=== PATIENT | female | born 1985 | race Caucasian/White ===

== ENCOUNTER → 2017-10-19 15:09 | Outpatient (REF) | payer BC, SELFPAY ==
--- NOTE | 2017-10-19 14:30 | PAPFT_PTH ---
PATIENT: Loretta Hu LOC: [facility] U#:[id number] AGE/SX: 39/F ROOM: RE10/19/[address]: Yu Rachel NP : 1985 BED: DIS: SPEC #: [id number] RECD: 10/19/17 18:04 STATUS: DEYSI ALMODOVAR #: [id number] GALINA: 10/19/17 14:[address]: Yu Rachel NP DEPT: [facility] Cytology RECD BY: Julianne Mckeon ENTERED: 10/19/17 18:04 SP TYPE: PAPFT OTHR DR: Renee Montiel Tissues: 1 - CX/ENDOCX FOR PAP SMEARS Procedures: PAP THIN PREP/UVM Screening HPV DNA PROBE Comments: [id number]
== END ==
LOC: LBN 15:09
PROVIDERS: PCP Internal Medicine; Visit Provider Nurse Practitioner Women's Health
DX: Z12.4 Encounter for screening for malignant neoplasm of cervix (principal); Z11.51 Encounter for screening for human papillomavirus (HPV)
CPT/HCPCS: 88142; 87624

== ENCOUNTER 2020-04-14 03:14 | Outpatient (CLI) | payer BC, SELFPAY ==
[2020-04-14 10:52] LABS: BUN 13 mg/dL (7-18); CREATININE 0.9 mg/dL (0.55-1.02); Calcium 10.3 mg/dL (8.5-10.1); Calculated LDL 222 mg/dL (<100); Chloride 105 mmol/L (98-107); Cholesterol 304 mg/dL (<200); Glucose 92 mg/dL (74-106); HDL Cholesterol 66 mg/dL (40-60); Potassium 4.2 mmol/L (3.5-5.1); Sodium 140 mmol/L (136-145); Triglyceride 81 mg/dL (<150)
[2020-04-17 23:19] LABS: 25-Hydroxy D Total 58 ng/mL; 25-Hydroxy D2 <4.0 ng/mL; 25-Hydroxy D3 58 ng/mL
== END 2020-04-14 03:15 | disposition home or self-care (01) ==
LOC: LBO 03:14
PROVIDERS: PCP Internal Medicine; Visit Provider Internal Medicine
DX: Z00.00 Encounter for general adult medical examination without abnormal findings (principal); Z13.220 Encounter for screening for lipoid disorders; Z13.228 Encounter for screening for other metabolic disorders; Z13.21 Encounter for screening for nutritional disorder
CPT/HCPCS: 36415; 80048; 80061; 82306

== ENCOUNTER 2023-05-10 14:51 | Outpatient (REF) | payer BC, SELFPAY ==
[2023-05-10 15:28] LABS: Abs Immature Grans 0.03 10^3/uL (0.0-0.06); Absolute Basophil Count 0.05 10^3/uL (0.0-0.2); Basophils % 0.4; Eosinophils % 0.7; HCT 42.7 % (36.0-46.0); HGB 14.1 g/dL (11.2-15.7); Immature Grans % 0.2; Lymphocytes % 25.5; MCH 28.7 pg (27.0-33.0); MCV 87 fL (80-95); MPV 9.7 fL (8.0-11.0); Monocytes % 3.5; Neutrophils % 69.7; Platelet Count 296 10^3/uL (130-400); RBC 4.92 10^6/uL (3.93-5.22); RDW 12.1 % (11.7-14.6); RDW-SD 38.9 fL; WBC 12.14 10^3/uL (4.4-10.8)
[2023-05-10 15:31] LABS: Absolute Eosinophil Count 0.08 10^3/uL (0.0-0.7); Absolute Monocyte Count 0.42 10^3/uL (0.1-0.8); Absolute Neutrophil Count 8.46 10^3/uL (1.2-6.7)
[2023-05-10 15:46] LABS: ALT 33 U/L (14-59); AST 19 U/L (15-37); Alkaline Phosphatase 98 U/L (46-116); Anion Gap 12.5 mmol/L (3-11); BUN 17 mg/dL (7-18); Bilirubin, Total 0.3 mg/dL (0.2-1.0); CO2 23.5 mmol/L (21.0-32.0); CREATININE 0.9 mg/dL (0.55-1.02); Calcium 10.5 mg/dL (8.5-10.1); Chloride 105 mmol/L (98-107); Estimated GFR 84.44 (mL/min/1.73m2); Glucose 86 mg/dL (74-106); Potassium 4.3 mmol/L (3.5-5.1); Sodium 141 mmol/L (136-145); Total Protein 8.1 g/dL (6.4-8.2)
[2023-05-10 16:20] LABS: Lipase 49 U/L (16-77)
== END 2023-05-10 14:52 | disposition home or self-care (01) ==
LOC: LBN 14:51
PROVIDERS: PCP Internal Medicine; Visit Provider Physician Assistant Medical
DX: R10.11 Right upper quadrant pain (principal)
CPT/HCPCS: 80053; 80061; 83690; 85025

== ENCOUNTER 2024-08-01 18:58 | Observation (INO) | payer BC, SELFPAY ==
[2024-08-01 19:02] VITALS: BP 141/99; PULSE 88; RESP 20; TEMP 37; O2SAT 98
--- NOTE | 2024-08-01 19:24 | ED.GENADUL_ITS ---
Discharge Plan Disposition Patient Disposition: Admit to [facility] Condition: Stable Discharge Details Clinical Impression: Acute appendicitis, uncomplicated Primary Care Provider: Renee Montiel ED Provider: Rocío Hanna Home Meds and New Rx's Prescriptions: No Action norgestimate-ethinyl estradiol [Sprintec (28)] 0.25-35 mg-mcg tablet 1 tab PO DAILY Qty: 84 1RF Formula 1 EACH tablet 1 ea PO DAILY Qty: 120 One-Per-Day [place]-3 1 EACH capsule,delayed release(DR/EC) 1 ea PO DAILY HPI General Mode of arrival: ambulatory . Date/Time Provider Initiated Documentation: 08/01/24 19:09 . Limitations to Documentation: no limitations . Information obtained by: patient and old records reviewed . HPI Narrative: This is a 38-year-old female patient with a history of 2 C-sections, presenting for evaluation of right lower quadrant abdominal pain. The patient was in her normal state of health until approximately 1-1/2 hours ago, when she developed a sharp pain in her right lower quadrant that did not improve. She states that she felt much worse when she pressed on that area, states she has not noted any fevers, vomiting or nausea but she does feel like she has anorexia. Her last bowel movement was today and was normal for her, she has not had any dysuria or hematuria. The patient uses oral control for contraception, last menstrual period 2 weeks ago. Other than 2 C-sections she has no abdominal surgical history. Related Data Home Medications ?Medication ?Instructions ?Recorded ?Confirmed prenat.vits,natalie,xvs-gknk-dlfjd 1 ea PO DAILY #120 tabs 11/07/14 08/01/24 ( Formula tablet) omega-3 fatty acids-fish oil 684 1 ea PO DAILY 10/19/17 08/01/24 mg-1,200 mg capsule,delayed release (One-Per-Day [place]-3) norgestimate 0.25 mg-ethinyl 1 tab PO DAILY #84 tabs 12/27/18 08/01/24 estradiol 0.035 mg tablet (Sprintec (28)) Previous Rx's ?Medication ?Instructions ?Recorded norgestimate 0.25 mg-ethinyl 1 tab PO DAILY #84 tabs 12/27/18 estradiol 0.035 mg tablet (Sprintec (28)) Allergies Allergy/AdvReac Type Severity Reaction Status Date / Time No Known Allergies Allergy Verified 08/01/24 19:01 General Stated Complaint: Abd Prob VLAD: 3 Exam Narrative Exam Narrative: Gen: Awake and alert, in no apparent distress HEENT: Non-icteric sclera Neck: Supple Lungs: No apparent respiratory distress, normal respiratory effort. CV: Appears well perfused Abdomen: Non-distended, soft, tender to palpation in the right lower quadrant with some guarding. She has a positive Rovsing sign but no rebound tenderness or rigidity. MSK: Moves 4 extremities without apparent limitation in ROM Skin: Visualized skin without rashes, cyanosis. Neuro: Normal Gait, no obvious focal deficits or facial asymmetry. Speaks in full, clear sentences. Psych: Appropriate for situation. Course Vital Signs Vital signs: Vital Signs Temperature 37.0 C 08/01/24 19:02 Pulse 88 08/01/24 19:02 Respiratory Rate 20 08/01/24 19:02 Blood Pressure 141/99 H 08/01/24 19:02 Pulse Oximetry 98 08/01/24 19:02 Temperature 37.0 C 08/01/24 19:02 Temperature Source Oral 08/01/24 19:02 Pulse 88 08/01/24 19:02 Respiratory Rate 20 08/01/24 19:02 Blood Pressure 141/99 H 08/01/24 19:02 Blood Pressure Position Sitting 08/01/24 19:02 Pulse Oximetry 98 08/01/24 19:02 Oxygen Delivery Method Room Air 08/01/24 19:02 Oxygen Flow Rate 0 08/01/24 19:02 Pain Level 6 08/01/24 19:02 Medical Decision Making This is a 38-year-old female patient presenting for evaluation of right lower quadrant abdominal pain. Differential includes but is not limited to appendicitis, ectopic , ovarian cyst, ovarian torsion. No history concerning for bowel obstruction, exam less consistent with diverticulitis, pancreatitis, hepatitis, cholecystitis. We will obtain laboratory studies to include CBC, CMP, magnesium, lipase, urinalysis and test. Will obtain a CT abdomen and pelvis with contrast and provide the patient with Tylenol for initial symptomatic management. Laboratory studies notable for a slight leukocytosis to 13.5, no anemia or thrombocytopenia. Chemistry panel with a mildly low potassium to 3.3, which was repleted orally. No kidney dysfunction or evidence of liver disease, lipase is low. I reviewed the patient's CT, which shows early uncomplicated appendicitis. I reached out to general surgery who will evaluate the patient, a dose of Zosyn was provided and the patient was made NPO at midnight. She was admitted to the surgical team with a plan to go to the OR in the morning. Remained hemodynamically appropriate while under my care, transferred to the floor without incident. Medical Records Medical records reviewed: Yes I reviewed the patient's medical records. Lab Data Lab results reviewed: Yes I reviewed the patient's lab results. Quality:SDOH Health Related Social Needs: No Data to Display PFSH All Active Problems (Updated 04/09/18 @ 15:38 by Yola Montoya NP) Acute appendicitis, uncomplicated (Acute) Contraception (Acute) History of anorexia nervosa (Acute) As teen. When figure skating, body image related. Bipolar disorder (Chronic) History. No medications Previous section (Chronic 07/14/16) Surgical History (Updated 04/09/18 @ 15:38 by Yola Montoya NP) section (09/27/14) C/S #2 03/08/17 [facility]. F. Ana. KK Family History Mother Depression Hypothyroidism Father GERD (gastroesophageal reflux disease) Sister Depression Sister No problems noted. Brother No problems noted. Daughter Age: 9 No problems noted. Social History Smoking/Tobacco Use Status: Former Tobacco Use Quit Date: 08/11/21 Smoking risk assessment performed?: Yes Alcohol Intake: current Alcohol Intake frequency: a few times a month Alcohol type: hard liquor Drug use: Occasionally Substance use type: marijuana Housing: house Do you feel safe at home: No Do you feel safe in your relationship?: No Female Reproductive History Menstrual control method: progesterone injection History History 3 Para 2 Hx # Term Pregnancies Multiple births Hx # Pregnancies Ectopic pregnancies AB induced Hx Number of Living Children AB spontaneous 1
[2024-08-01 19:30] LABS: Abs Immature Grans 0.03 10^3/uL (0.0-0.06); Absolute Basophil Count 0.04 10^3/uL (0.0-0.2); Absolute Lymphocyte Count 3.45 10^3/uL (1.2-3.4); Absolute Neutrophil Count 9.29 10^3/uL (1.2-6.7); Basophils % 0.3 %; Eosinophils % 1.3 %; HCT 41.1 % (36.0-46.0); HGB 13.6 g/dL (11.2-15.7); Immature Grans % 0.2 %; Lymphocytes % 25.4 %; MCH 28.3 pg (27.0-33.0); MCHC 33.1 % (32.0-36.0); MCV 86 fL (80-95); MPV 8.8 fL (8.0-11.0); Monocytes % 4.4 %; Neutrophils % 68.4 %; Platelet Count 288 10^3/uL (130-400); RDW 12.3 % (11.7-14.6); RDW-SD 38.3 fL; WBC 13.58 10^3/uL (4.4-10.8)
[2024-08-01 19:33] LABS: Absolute Eosinophil Count 0.18 10^3/uL (0.0-0.7)
[2024-08-01 19:47] LABS: ALT 24 U/L (14-59); AST 19 U/L (15-37); Albumin 3.6 g/dL (3.4-5.0); Alkaline Phosphatase 90 U/L (46-116); Anion Gap 10.4 mmol/L (3-11); BUN 15 mg/dL (7-18); Bilirubin, Total 0.3 mg/dL (0.2-1.0); CO2 23.6 mmol/L (21.0-32.0); Calcium 9.2 mg/dL (8.5-10.1); Chloride 105 mmol/L (98-107); Estimated GFR 73.95 (mL/min/1.73m2); Glucose 105 mg/dL (74-106); Lipase 38 U/L (<78); Magnesium 1.9 mg/dL (1.8-2.4); Potassium 3.3 mmol/L (3.5-5.1); Sodium 139 mmol/L (136-145); Total Protein 7.9 g/dL (6.4-8.2)
[2024-08-01] MEDS: Omnipaque 350 MG/ML 100 ML BTL IJ (19:47)
[2024-08-01] MEDS: Normal Saline - Diluent 50 ML VIAL IJ (19:47)
--- NOTE | 2024-08-01 19:48 | DI.CT_ITS ---
Exam(s) CT ABDOMEN PELVIS W EXAM: CT ABDOMEN PELVIS W CLINICAL HISTORY: RLQ pain, eval appy. TECHNIQUE: Imaging Protocol: Axial computed tomography images with coronal and sagittal reformatted images were created and reviewed CONTRAST MATERIAL: Intravenous: Omnipaque 350 Contrast volume:75 ml Oral: no COMPARISON: CT ABD PELVIS WITH CONTRAST from 03/07/2009 FINDINGS: ABDOMEN and PELVIS: Lung Bases: No acute findings. Liver: Normal density. No suspicious mass. Gallbladder and biliary tract: No radiodense calculus. No wall thickening or pericholecystic fluid. No biliary dilation. Pancreas: Normal density. No abnormal calcifications or inflammatory process. No evidence of mass. Spleen: Normal. Kidneys: Normal size, contour and axis. No radiodense stones. No obstructive uropathy. No suspicious masses seen. Adrenal glands: No masses seen. Vasculature: Abdominal aorta non-dilated. Soft tissues: Unremarkable. Bladder: No gross wall thickening. No calculi.No focal mass. Bowel: No obstruction. No bowel wall thickening. The appendix is retrocecal and is dilated to 8 mi llimeters. There is some mild stranding in the surrounding fat. No evidence of abscess or perforati on. Peritoneal cavity: No ascites. No focal collection. No free air. Bones: Unremarkable for age. Reproductive organs: Unremarkable. Lymph nodes: No pathologically enlarged lymph nodes. IMPRESSION:: Acute appendicitis. No perforation or abscess. He RADIATION DOSE DELIVERED: 530.05mGy.cm Total DLP DATA REPOSITORY: All CT scans at this facility are submitted to the National Radiology Data Registry (NRDR) Dose Index Registry (DIR) with the [employer] (ACR). RADIATION OPTIMIZATION: All CT scans at this facility use at least one of these dose optimization te chniques: automated exposure control; mA and/or kV adjustment per patient size (includes targeted exa ms where dose is matched to clinical indication); or iterative reconstruction.
[2024-08-01] MEDS: ACETAMINOPHEN 1,000 MG/100 ML BTL 1000 MG (20:04)
--- NOTE | 2024-08-01 20:13 | DI.VRAD_ITS ---
Addendum created by Cristela Solis MD on 08/01/2024 8:15:24 PM EDT: I discussed case findings with STRATEGIC ACCOUNT EXECUTIVE Merlin Goldberg 08/01/2024 8:14 PM EDT. Initial report created on 08/01/2024 8:13:17 PM EDT: PROCEDURE INFORMATION: Exam: CT Abdomen And Pelvis With Contrast Exam date and time: 08/01/2024 7:38 PM Age: 38 years old Clinical indication: Abdominal pain; Localized; Right lower quadrant (rlq); Rlq pain, eval appy TECHNIQUE: Imaging protocol: Computed tomography of the abdomen and pelvis with contrast. Radiation optimization: All CT scans at this facility use at least one of these dose optimization techniques: automated exposure control; mA and/or kV adjustment per patient size (includes targeted exams where dose is matched to clinical indication); or iterative reconstruction. Contrast material: [id number]; Contrast volume: 75 ml; Contrast route: INTRAVENOUS (IV); COMPARISON: US ABDOMEN LIMITED 05/10/2023 11:58 AM FINDINGS: Liver: Normal. No mass. Gallbladder and biliary ducts: Normal. No calcified stones. No ductal dilation. Pancreas: Normal. No ductal dilation. Spleen: Normal. No splenomegaly. Adrenal glands: Normal. No mass. Kidneys and ureters: Normal. No hydronephrosis. Stomach and bowel: Unremarkable. No obstruction. No mucosal thickening. Appendix: The appendix is abnormally thickened. It measures 8 mm in diameter. It is retrocecal in location. There is some mild adjacent inflammatory change. No extraluminal fluid or air. Intraperitoneal space: See Appendix finding. Vasculature: Unremarkable. No abdominal aortic aneurysm. Lymph nodes: Unremarkable. No enlarged lymph nodes. Urinary bladder: Unremarkable as visualized. Reproductive: Unremarkable as visualized. Bones/joints: Unremarkable. No acute fracture. Soft tissues: Unremarkable. IMPRESSION: Early, acute appendicitis, uncomplicated. Dictated and Authenticated by: Cristela Solis MD. Orderin [facility] Alford MD
--- NOTE | 2024-08-01 20:45 | HPE_ITS ---
Date of service: 08/01/24 Time of Service: 20:45 Assessment and Plan Assessment and plan (1) Acute appendicitis, uncomplicated: Status: Acute Assessment and plan: Certainly, the history, and physical exam are consistent with acute appendicitis, and the inflammation seen on the CT scan is also very convincing of diagnosis. I explained to Loretta the role of appendectomy and treatment of appendicitis. She is already been started on broad-spectrum antibiotics, and we will make arrangements to proceed with appendectomy in the morning. History of Present Illness History of Present Illness Chief Complaint: Abdominal pain Narrative: Loretta is 38 years old. Sometime mid afternoon she began experiencing sharp mid abdominal pain that eventually radiated to the right lower quadrant. This was associated with a little bit of loss of appetite. First, she thought it was just some gas, but eventually as the pain settled into the right lower quadrant and remained consistent, she became concerned for appendicitis. She came to the ER, was found to have a leukocytosis around 14,000. She underwent a CT scan that confirmed the diagnosis of acute appendicitis. With surgical history is most significant for hysterectomy x 2. Review of Systems Constitutional Constitutional: Denies body ache(s), Denies fever(s) and Reports poor appetite Eyes Eyes: Reports system reviewed and no additional complaints, except as documented ENT Ears, Nose, Mouth, and Throat: Reports system reviewed and no additional complaints, except as documented Cardiovascular Cardiovascular: Denies chest pain and Denies dyspnea Respiratory Respiratory: Denies chest congestion, Denies cough and Denies dyspnea Gastrointestinal Gastrointestinal: Reports abdominal pain, Denies change in stool character, Reports nausea and Denies vomiting Genitourinary Genitourinary: Reports system reviewed and no additional complaints, except as documented Hematologic/Lymphatic Hematologic/Lymphatic: Denies easy bleeding and Denies easy bruising PFSH All Active Problems (Updated 04/09/18 @ 15:38 by Yola Montoya NP) Acute appendicitis, uncomplicated (Acute) Contraception (Acute) History of anorexia nervosa (Acute) As teen. When figure skating, body image related. Bipolar disorder (Chronic) History. No medications Previous section (Chronic 07/14/16) Surgical History (Updated 04/09/18 @ 15:38 by Yola Montoya NP) section (09/27/14) C/S #2 03/08/17 [facility]. Lisandro Pavon BRITNEY Family History Mother Depression Hypothyroidism Father GERD (gastroesophageal reflux disease) Sister Depression Sister No problems noted. Brother No problems noted. Daughter Age: 9 No problems noted. Social History Smoking/Tobacco Use Status: Former Tobacco Use Quit Date: 08/11/21 Smoking risk assessment performed?: Yes Alcohol Intake: current Alcohol Intake frequency: a few times a month Alcohol type: hard liquor Drug use: Occasionally Substance use type: marijuana Housing: house Do you feel safe at home: No Do you feel safe in your relationship?: No Female Reproductive History Menstrual control method: progesterone injection History History 2 3 Para 2 Hx # Term Pregnancies Multiple births Hx # Pregnancies Ectopic pregnancies AB induced Hx Number of Living Children AB spontaneous 1 Meds Allergies and Home Medications Allergies Allergy/AdvReac Type Severity Reaction Status Date / Time No Known Allergies Allergy Verified 08/01/24 19:01 Home Medications ?Medication ?Instructions ?Recorded ?Confirmed ?Type prenat.vits,natalie,svl-ghxw-zaxsq 1 ea PO DAILY #120 tabs 11/07/14 08/01/24 History ( Formula tablet) omega-3 fatty acids-fish oil 684 1 ea PO DAILY 10/19/17 08/01/24 History mg-1,200 mg capsule,delayed release (One-Per-Day [place]-3) norgestimate 0.25 mg-ethinyl 1 tab PO DAILY #84 tabs 12/27/18 08/01/24 Rx estradiol 0.035 mg tablet (Sprintec (28)) Exam Const General: cooperative, healthy appearing and comfortable Orientation: alert, awake and oriented x3 HENMT Head: normal to inspection Eyes General: appearance normal, both eyes and all related structures Neck Neck: normal visual inspection, full ROM and no lymphadenopathy Resp Effort & Inspection: normal respiratory effort and no cough Auscultation: clear to auscultation bilaterally Cardio Rate: regular rate Rhythm: regular rhythm Heart Sounds: S1 normal and S2 normal GI Inspection: normal to inspection and non-distended Palpation: soft and tender (Right lower quadrant) Results Imaging Abdomen CT scan report/results: report reviewed and image reviewed CT scan - pelvis: report reviewed and image reviewed Labs 08/01/24 18:30 08/01/24 18:30 Labs: Laboratory Results - last 24 hr 08/01/24 18:30 WBC 13.58 H RBC 4.80 Hgb 13.6 Hct 41.1 MCV 86 MCH 28.3 MCHC 33.1 RDW 12.3 Plt Count 288 MPV 8.8 Immature Gran % 0.2 Neutrophils % 68.4 Lymphocytes % 25.4 Monocytes % 4.4 Eosinophils % 1.3 Basophils % 0.3 Nucleated RBC % 0.0 Absolute Neutrophils 9.29 H Absolute Lymphocytes 3.45 H Absolute Monocytes 0.60 Absolute Eosinophils 0.18 Absolute Basophils 0.04 Sodium 139 Potassium 3.3 L Chloride 105 Carbon Dioxide 23.6 Anion Gap 10.4 BUN 15 Creatinine 1.0 Est GFR (CKD-EPI 2020) 73.95 Glucose 105 Calcium 9.2 Magnesium 1.9 Total Bilirubin 0.3 AST 19 ALT 24 Alkaline Phosphatase 90 Total Protein 7.9 Albumin 3.6 Lipase 38 Last Vital Signs Temp 98.6 F 08/01/24 19:02 Pulse 88 08/01/24 19:02 Resp 20 08/01/24 19:02 BP 141/99 H 08/01/24 19:02 Pulse Ox 98 08/01/24 19:02 Time Spent Time spent with Patient: <40 minutes Time was spent: preparing to see the patient(eg.review tests), referring, communicating with other health care management specialist, indepentently interpreting results, counseling the patient and care coordination
[2024-08-01 21:25] VITALS: BP 114/75; PULSE 81; RESP 16; O2SAT 96
[2024-08-01] MEDS: PIPERACILLIN/TAZO 3.375 GM in Normal Saline 50 ML IVPB (21:31)
[2024-08-01] MEDS: Potassium Chloride 20 MEQ TABCR PO (21:33)
[2024-08-01 21:43] LABS: Bilirubin Negative (Negative); Blood Trace-intact (Negative); Clarity Clear (Clear); Glucose Negative (Negative); Ketones Negative (Negative); Leukocyte Esterase Negative (Negative); Nitrite Negative (Negative); Specific Gravity <= 1.005 (1.005-1.025); Urobilinogen 0.2 mg/dL (Up to 0.2)
--- NOTE | 2024-08-01 21:47 | W.PC.ACHO ---
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 Pt reports tender on palpation, 08/20. No fevers, no nausea or vomiting. LBM was this morning, normal. Has not taken medication for pain. (Last Updated 04/09/18 @ 15:38 by Yola Montoya NP) section (09/27/14) Most Recent Vital Signs Temperature 37.0 C 08/01/24 19:02 Temperature Source Oral 08/01/24 19:02 Pulse 81 08/01/24 21: Respiratory Rate 16 08/01/24: Blood Pressure 114/75 08/01/24: Blood Pressure Mean 88 08/01/24 21: Blood Pressure Position Sitting 08/01/24 19:02 Pulse Oximetry 96 08/01/24 21:25 Oxygen Delivery Method Room Air 08/01/24 19:02 Oxygen Flow Rate 0 08/01/24 19:02 Pain Level 4 08/01/24 21:25 Allergies No Known Allergies Allergy (Verified 08/01/24 19:01) Active Medications Generic Name Dose Route Start Last Admin Trade Name Chrisq PRN Reason Stop Dose Admin Iohexol 100 ml 08/01/24 20:00 08/01/24 19:47 Omnipaque 350 Mg/Ml 100 Ml Btl IJ 08/31/24 23:59 100 ml DIRECTED CARMENCITA Administration Sodium Chloride 50 ml 08/01/24 20:00 08/01/24 19:47 Normal Saline - Diluent 50 Ml Vial IJ 50 ml .FOR DI USE CARMENCITA Administration IV IV Catheter Type [Right Saline Lock Antecubital] IV Catheter Gauge [Right 20 Antecubital] Diet Orders Category Date Time Status npo [Nothing Per Oral] [DIET] Nutrition 08/02/24 Breakfast Ordered Diagnostics 08/01/24 08/01/24 Range/Units 20:05 18:30 WBC 13.58 H (4.4-10.8) 10^3/uL RBC 4.80 (3.93-5.22) 10^6/uL Hgb 13.6 (11.2-15.7) g/dL Hct 41.1 (36.0-46.0) % MCV 86 (80-95) fL MCH 28.3 (27.0-33.0) pg MCHC 33.1 (32.0-36.0) % RDW 12.3 (11.7-14.6) % Plt Count 288 (130-400) 10^3/uL MPV 8.8 (8.0-11.0) fL Immature Gran % 0.2 % Neutrophils % 68.4 % Lymphocytes % 25.4 % Monocytes % 4.4 % Eosinophils % 1.3 % Basophils % 0.3 % Nucleated RBC % 0.0 (0.0-0.3) % Absolute Neutrophils 9.29 H (1.2-6.7) 10^3/uL Absolute Lymphocytes 3.45 H (1.2-3.4) 10^3/uL Absolute Monocytes 0.60 (0.1-0.8) 10^3/uL Absolute Eosinophils 0.18 (0.0-0.7) 10^3/uL Absolute Basophils 0.04 (0.0-0.2) 10^3/uL Sodium 139 (136-145) mmol/L Potassium 3.3 L (3.5-5.1) mmol/L Chloride 105 (98-107) mmol/L Carbon Dioxide 23.6 (21.0-32.0) mmol/L Anion Gap 10.4 (3-11) mmol/L BUN 15 (7-18) mg/dL Creatinine 1.0 (0.55-1.02) mg/dL Est GFR (CKD-EPI 2020) 73.95 (mL/min/1.73m2) Glucose 105 (74-106) mg/dL Calcium 9.2 (8.5-10.1) mg/dL Magnesium 1.9 (1.8-2.4) mg/dL Total Bilirubin 0.3 (0.2-1.0) mg/dL AST 19 (15-37) U/L ALT 24 (14-59) U/L Alkaline Phosphatase 90 (46-116) U/L Total Protein 7.9 (6.4-8.2) g/dL Albumin 3.6 (3.4-5.0) g/dL Lipase 38 (<78) U/L Urine Color Pending Urine Clarity Pending Urine pH Pending Ur Specific [place] Pending Urine Protein Pending Urine Ketones Pending Urine Blood Pending Urine Nitrite Pending Urine Bilirubin Pending Urine Urobilinogen Pending Ur Leukocyte Esterase Pending Urine Glucose Pending Intake and Output - 24 Hour Total 08/01/24 18:58 thru 08/01/24 21:32 Intake Total 10 Balance 10 Weight 71.668 kg Intake: IV 10 Falls Risk Assessment History of Falls No History 08/01/24 21:24 Fall Total Score 0 08/01/24 21:24 Level of Risk Standard/Low Risk 08/01/24 21:24 Problems (Last Updated 04/09/18 @ 15:37 by Yola Montoya NP) Acute appendicitis, uncomplicated (Acute) v v v v v v v v v Sending and/or Receiving Nurses: Please use comment section below to note any information pertinent to the patient hand-off not included above. Information / Comments: A & O, Up ad ivon, lower abd. pain this afternoon that radiated to the RLQ. Nothing relieved the pain, patient presented to the ER. [facility] to admit and remove appendix in the AM. PO K (20mEq) for replacement K (3.3 serum). 20g R AC. First dose pip/jerry administered in the ER. Report received from: Alma Delia Novak RN
[2024-08-01 21:55] LABS: Epithelial Cells Few HPF (Negative); WBC 0-2 HPF (0-5)
[2024-08-01 21:56] LABS: Bacteria Rare HPF (Negative); C & S Indicated? No; Casts Negative LPF (Negative); Crystals Negative HPF (Negative); Mucus Negative (Negative)
[2024-08-01 21:57] VITALS: BP 148/96; PULSE 78; RESP 20; TEMP 36.2; O2SAT 100
[2024-08-01] MEDS: Lactated Ringers 1,000 ML 75 ML IV (22:01)
[2024-08-01 22:20] VITALS: BP 148/96; PULSE 78; RESP 20; TEMP 36.2; O2SAT 100
[2024-08-01] MEDS: Normal Saline Flush 10 ML SYR IVP (22:22)
[2024-08-01] MEDS: Enoxaparin 40 MG/0.4 ML SYR SC (22:28)
[2024-08-02] VITALS (25 sets, daily range): BP systolic 104–132; BP diastolic 49–98; PULSE 55–78; RESP 13–27; TEMP 35.3–36.8; O2SAT 98–100; BMI 29.4
[2024-08-02] MEDS: PIPERACILLIN/TAZO 3.375 GM in Normal Saline 50 ML IVPB ×2 (03:30→11:45)
[2024-08-02] MEDS: ACETAMINOPHEN 1,000 MG/100 ML BAG 400 MG IVPB ×2 (03:59→11:45)
--- NOTE | 2024-08-02 08:42 | INITIAL_ITS ---
Date of service: 08/02/24 Time of Service: 09:02 Care Management Initial Assmt Initial Assessment Reason for Hospitalization: Acute Appendicitis Functional Status/Living Situation Patient Presentation: Loretta was lying in bed and had just finished reviewing information with anesthesiology, when CM arrived. Loretta presented to the ED yesterday for evaluation of right lower quadrant abdominal pain. After a CT scan, arrangements to proceed with an appendectomy were made. Loretta is living in a single family home, with her . She shares that she is one of 4 children, and has a la rge family who are supportive to her. 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 CM will continue to follow. [place] Residence: [place] Resides with: Spouse Significant Other/Family: Local Natural Supports: Friends/family Employment Status: Employed (Nursing staff at [employer] ) Instrumental Activities of Daily Living (ADLs): Independent Medications Medication Management: No Issues/Barriers identified Advance Directives Advance Directives: Do you have an Advance Directive: N 07/24/12 10:43 AD On File at [facility]: N 07/24/12 10:43 Date Asked 08/01/24 08/01/24 19:56 AD Date Reviewed COLST On File at [facility] COLST Date Scanned Code Status Resuscitation Status Full Code Portal Pt does not currently have a portal and education provided: Yes Insurance Coverage/Financial Issues Insurance: /[facility] Care Team Visit Care Team Role Provider Type Renee Montiel Primary Care Provider NON-[facility] STAFF PHYSICIAN Rocío Hanna MD Emergency Provider [facility] STAFF PHYSICIAN Gianni Zavala MD Admit Provider [facility] STAFF PHYSICIAN Attending Provider Discharge Potential Discharge Needs: PCP F/U Appt and Surgical F/U Appt Anticipated Barriers to Discharge: Medical Status Patient/Family Education Needs: Review discharge instructions, discuss Ask Me Three Transportation: Private vehicle Plan: Anticipate Loretta will be discharged home, once medically ready. She will follow up with her community provider, surgical team, and discharge plan of car e. She will transport via private vehicle by family. CM will continue to follow. Social Determinants of Health Screening Social Determinants of health last assessed in clinic: 08/02/24 Will the Patient Participate in the Screening?: Declined to provide Do you worry about having a steady place to live?: no Problems where you live: no known problems In the past 12 months, have you had to go without electric, gas, oil or water in your home?: no 1. Within the past 12 months, we worried whether our food would run out before we got money to buy more.: Never true 2. Within the past 12 months, the food we bought just didn't last and we didn't have money to get more.: Never true Has lack of transportation kept you from medical appointments or from doing t hings needed for daily living?: no Has anyone in your life made you feel unsafe or unsupported?: no How hard is it for you to pay for the very basics like food, housing, medical care, and heating? Would you say it is:: Not hard at all Do you want help finding or keeping work or a job?: I do not need or want help If for any reason you need help with day-to-day activities such as bathing, preparing meals, shopping, managing finances, etc., do you get the help you need?: I don?t need any help How often do you feel lonely or isolated from those around you?: Never Do you speak a language other than Setsw[place] at home?: No Does the patient want assistance with any of the above?: No PFSH All Active Problems (Updated 04/09/18 @ 15:38 by Yola Montoya NP) Acute appendicitis, uncomplicated (Acute) Contraception (Acute) History of anorexia nervosa (Acute) As teen. When figure skating, body image related. Bipolar disorder (Chronic) History. No medications Previous section (Chronic 07/14/16) Surgical History (Updated 04/09/18 @ 15:38 by Yola Montoya NP) section (09/27/14) C/S #2 03/08/17 [facility]. F. Ana. KK Family History Mother Depression Hypothyroidism Father GERD (gastroesophageal reflux disease) Sister Depression Sister No problems noted. Brother No problems noted. Daughter Age: 9 No problems noted. Social History Smoking/Tobacco Use Status: Former Tobacco Use Quit Date: 08/11/21 Smoking risk assessment performed?: Yes Alcohol Intake: current Alcohol Intake frequency: a few times a month Alcohol type: hard liquor Drug use: Occasionally Substance use type: marijuana Housing: house Do you feel safe at home: No Do you feel safe in your relationship?: No Female Reproductive History Menstrual control method: progesterone injection History History 3 Para 2 Hx # Term Pregnancies Multiple births Hx # Pregnancies Ectopic pregnancies AB induced Hx Number of Living Children AB spontaneous 1 Readmission Within the Past 30 Days Yes or No: No
--- NOTE | 2024-08-02 11:42 | ANES.PREOP_ITS ---
General Info Date of Service Date Performed: 08/02/24 Height: 5 ft 2.5 in Weight: 74.208 kg Body Mass Index (BMI): 29.4 Surgical Procedure: Operation Date: 08/02/24 12:10 Proposed Procedure Side Surgeon p Appendectomy Laparoscopic Gianni Zavala MD Meds Allergies and Home Medications Allergies Allergy/AdvReac Type Severity Reaction Status Date / Time No Known Allergies Allergy Verified 08/01/24 19:01 Home Medication ?Medication ?Instructions ?Recorded prenat.vits,natalie,nfr-bysd-gvohp 1 ea PO DAILY #120 tabs 11/07/14 ( Formula tablet) omega-3 fatty acids-fish oil 684 1 ea PO DAILY 10/19/17 mg-1,200 mg capsule,delayed release (One-Per-Day [place]-3) norgestimate 0.25 mg-ethinyl 1 tab PO DAILY #84 tabs 12/27/18 estradiol 0.035 mg tablet (Sprintec (28)) Current Visit Medications: Current Medications Generic Name Dose Route Start Last Admin Trade Name Chrisq PRN Reason Stop Dose Admin Enoxaparin Sodium 40 mg 08/01/24 22:00 08/01/24 22:28 Enoxaparin 40 Mg/0.4 Ml Syr SC 40 mg Q24H CARMENCITA Administration Hydromorphone HCl 1 mg 08/01/24 21:56 Hydromorphone 2 Mg/Ml Syr IVP Q4H PRN PRN Ringer's Solution 1,000 mls @ 75 mls/hr 08/01/24 21:56 08/02/24 04:00 IV 75 mls/hr INFUSION CARMENCITA Infusion Acetaminophen 1,000 mg in 100 mls @ 400 mls/hr 08/02/24 04:00 08/02/24 04:20 Ofirmev IVPB Infused Q8H CARMENCITA Infusion Piperacillin Sod/Tazobactam 50 mls @ 100 mls/hr 08/02/24 04:00 08/02/24 04:00 Sod 3.375 gm/ Sodium Chloride IVPB Infused Q6H CARMENCITA Infusion IV Miscellaneous Supplies 1 each 08/01/24 21:56 Iv Access IV DIRECTED CARMENCITA Ondansetron HCl 4 mg 08/01/24 21:56 Ondansetron 4 Mg/2 Ml Vial IVP Q4H PRN PRN Sodium Chloride 0 ml 08/01/24 21:56 08/01/24 22:22 Normal Saline Flush 10 Ml Syr IVP 10 ml PRN PRN Administration Sodium Chloride 0 ml 08/02/24 08:30 08/02/24 07:58 Normal Saline Flush 10 Ml Syr IVP Not Given BID CARMENCITA Sodium Chloride 0 ml 08/01/24 21:56 Normal Saline 10 Ml Vial IJ DIRECTED PRN PFSH Active Problems Active Problems: Problem Status Onset Code Acute appendicitis, uncomplicated Acute K35.80 Contraception Acute Z30.9 History of anorexia nervosa Acute Bipolar disorder Chronic Previous section Chronic 07/14/16 Z98.891 Surgical History Surgical History (Updated 04/09/18 @ 15:38 by Yola Montoya NP) section (09/27/14) C/S #2 03/08/17 EVELY[facility]. Lisandro Perez. BRITNEY Tobacco Smoking/Tobacco Use Status: Former Tobacco Use Alcohol Alcohol Intake: current Alcohol intake frequency: a few times a month Alcohol type: hard liquor Substance Use Substance use: Occasionally Substance use type: marijuana Prental History History 2 3 Para 2 Hx # Term Pregnancies Multiple births Hx # Pregnancies Ectopic pregnancies AB induced Hx Number of Living Children AB spontaneous 1 Vital Signs and Lab Results Vital Signs Most Recent Vital Signs in EMR: Most Recent Vital Signs Temp Pulse Resp BP Pulse Ox 35.8 C L 65 16 114/69 100 08/02/24 08:05 08/02/24 08:05 08/02/24 08:05 08/02/24 08:05 08/02/24 08:05 Point of Care Results Point of Care Results: POC- Test(urine) Negative 08/01/24 22:48 Lab Results 08/01/24 18:30 08/01/24 18:30 Blood Type / Crossmatch: 2 No Data to Display Complete Blood Count: 2 White Blood Count 13.58 10^3/uL (4.4-10.8) H 08/01/24 18:30 Red Blood Count 4.80 10^6/uL (3.93-5.22) 08/01/24 18:30 Hemoglobin 13.6 g/dL (11.2-15.7) 08/01/24 18:30 Hematocrit 41.1 % (36.0-46.0) 08/01/24 18:30 Platelet Count 288 10^3/uL (130-400) 08/01/24 18:30 Complete Metabolic Panel: 2 Sodium 139 mmol/L (136-145) 08/01/24 18:30 Potassium 3.3 mmol/L (3.5-5.1) L 08/01/24 18:30 Chloride 105 mmol/L (98-107) 08/01/24 18:30 Carbon Dioxide 23.6 mmol/L (21.0-32.0) 08/01/24 18:30 BUN 15 mg/dL (7-18) 08/01/24 18:30 Creatinine 1.0 mg/dL (0.55-1.02) 08/01/24 18:30 Est GFR (CKD-EPI 2020) 73.95 (mL/min/1.73m2) 08/01/24 18:30 Magnesium 1.9 mg/dL (1.8-2.4) 08/01/24 18:30 Calcium 9.2 mg/dL (8.5-10.1) 08/01/24 18:30 Albumin 3.6 g/dL (3.4-5.0) 08/01/24 18:30 Glucose 105 mg/dL (74-106) 08/01/24 18:30 Liver Function Panel: 2 Alanine Aminotransferase (ALT/SGPT) 24 U/L (14-59) 08/01/24 18: 30 Aspartate Amino Transf (AST/SGOT) 19 U/L (15-37) 08/01/24 18:30 Coagulation Panel: 2 No Data to Display Cardiac Panel: 2 No Data to Display Arterial Blood Gas: 2 No Data to Display Venous Blood Gas: 2 No Data to Display Pancreas Panel: 2 Lipase 38 U/L (<78) 08/01/24 18:30 Thyroid Panel: 2 No Data to Display Infectious Disease: 2 No Data to Display Blood Cultures: 2 No Data to Display Toxicology Panel: 2 No Data to Display Panel: 2 No Data to Display Anesthesia Assessment and Plan Anesthesia History Personal History: No History of Anesthesia Complications Family History: No Family History of Anesthesia Complications Exercise Tolerance Exercise Tolerance: Metabolic Equivalents>4 Pertinent Negatives Pertinent Negatives: No Symptoms of GERD, No Major Cardiovascular Symptoms or Complaints and No Major Pulmonary Symptoms or Complaints Cardiac & Pulmonary Exam Cardiac Exam: Normal S1/S2 Heart Sounds Pulmonary Exam: Clear Bilateral Breath Sounds Implantable Cardiac Device Does patient have a Pacemaker or an ICD?: No Airway Exam Known Difficult Airway: No Mallampati Class: 1 Mouth Opening: Normal (> 3cm) Thyromental Distance: Greater than 3 cm Neck Range of Motion: Full ROM Neck Circumference: Normal Teeth Condition: Normal Dentition ASA Classification ASA Score: ASA 2 Emergency Case?: No NPO Status NPO Status: NPO Clears >2 hours, Solids >8 hours Status Status: Negative HCG Anesthesia Plan Resuscitation Status: Full Code Anesthesia Technique: General Anesthesia Airway Planned: Natural Airway Monitors Used: Standard Monitors
--- NOTE | 2024-08-02 11:53 | PHA.REVIEW2 ---
Pharmacy Admission Review Admission Clinical Review Admission Pharmacy Review: Acute appendicitis, uncomplicated (Acute) No Known Allergies Allergy (Verified 08/01/24 19:01) Resuscitation Status Full Code Height 5 ft 2.5 in Weight 74.208 kg Comments Comments/Follow Ups: OR today for acute appendicitis Pharmacy Admission Review Renal Dosing Renal Dosing: BUN 15 mg/dL (7-18) 08/01/24 18:30 Creatinine 1.0 mg/dL (0.55-1.02) 08/01/24 18:30 Medications needing adjustments: Reviewed (CrCl 72.77 mL/min) List of meds needing interventions: Current medications are okay Anticoagulation Anticoagulation: Hgb 13.6 g/dL (11.2-15.7) 08/01/24 18:30 Hct 41.1 % (36.0-46.0) 08/01/24 18:30 Plt Count 288 10^3/uL (130-400) 08/01/24 18:30 Creatinine 1.0 mg/dL (0.55-1.02) 08/01/24 18:30 DVT Prophylaxis: Reviewed Medications: Enoxaparin (40mg daily) Opiate Usage Evaluate Pain Scale/Pains Meds: Reviewed (hydromorphone 1mg IVP q4h PRN - no doses given) Scheduled Bowel Reg ordered if on Opiates?: No Relevant Labs Relevant Labs: Sodium 139 mmol/L (136-145) 08/01/24 18:30 Potassium 3.3 mmol/L (3.5-5.1) L 08/01/24 18:30 Chloride 105 mmol/L (98-107) 08/01/24 18:30 Magnesium 1.9 mg/dL (1.8-2.4) 08/01/24 18:30 Electrolytes, C-Reactive P, ESR: Reviewed (No new labs for today) Cardiac Review BP, HR, EF%: Reviewed (HR and BP WNL) QTc Review QTc: Reviewed (No EKG on file) IV to PO Switch IV Medications: Reviewed (APAP, hydromorphone, ondansetron and Zosyn ) Home Meds Home Med List reviewed: Reviewed Relevent Home Meds Not ordered & why?: Spintec, omega 3 fish oil and vitamins Current Meds Current Medication Order Review: Reviewed Pharmacy Antibiotic Review Relevant Labs: WBC 13.58 10^3/uL (4.4-10.8) H 08/01/24 18:30 Temperature 35.8 C Pharmacy Antibiotic Activity: Reviewed, no change Comments: Patient is on Zosyn, day 1, for acute appendicitis. Comments Comments/Follow Ups: OR today for acute appendicitis
[2024-08-02] MEDS: Lactated Ringers 1,000 ML 75 ML IV (14:05)
--- NOTE | 2024-08-02 15:15 | APP_PTH ---
PATIENT: Loretta Hu LOC: U#:[id number] AGE/SX: 38/F ROOM: RE08/01/[address]: Gianni Zavala MD : 1985 BED: A DIS: 08/02/2024 SPEC #: [id number] RECD: 08/02/24 17:57 STATUS: SOUT REQ #: [id number] GALINA: 08/02/24 15:[address]: Gianni Zavala DEPT: Surgical Specimen RECD BY: Julianne Mckeon ENTERED: 08/02/24 17:58 SP TYPE: Appendix OTHR DR: Renee Montiel Tissues: 1 - APPENDIX NOT INCIDENTAL Procedures: GROSS AND MICRO LEVEL 3 Comments: [id number]
[2024-08-02] MEDS: Bupivacaine 0.25% Pres-Free W/EPI 30 ML VIAL (15:26)
--- NOTE | 2024-08-02 15:37 | ROE_ITS ---
Operative Note Operative Note PRE-OP DIAGNOSIS: Acute appendicitis POST-OP DIAGNOSIS: same PROCEDURE: Laparoscopic appendectomy SURGEON: Gianni Zavala HAND W[employer] MENDER: Bo Gandara ANESTHESIA TYPE: Local By Surgeon and General LMA/ETT Refer to Anesthesia Record ESTIMATED BLOOD LOSS: 25 PATHOLOGY: other (Appendix) COMPLICATIONS: None Patient was transported to: PACU Patient's condition: stable Indications: Loretta is a 38-year-old woman with acute appendicitis Findings: Acute appendicitis Procedure Description: After the induction of general anesthesia, I prepped and draped the anterior abdominal wall in the usual fashion. Next, I made an umbilical incision. I gently dissected down to the fascia. Next, using a 5 mm optical viewing port, establish pneumoperitoneum. The camera was reinserted, and the underlying viscera was examined. There was no evidence of any injury from entry. Next, we placed the patient in some Trendelenburg positioning, and a 12 mm suprapubic port was established under the vision of the laparoscope. Another 5 mm port was added in the left lower quadrant. The patient was then tilted left side down, and the camera was moved to the left lower quadrant. The omentum was swept up out of the pelvis, and there were signs of acute inflammation on the right lower quadrant. The appendix tract slightly towards the base of the cecum, and a bit laterally with some simple adhesions that were easily divided with the LigaSure. It was certainly inflamed. I then used sequential firings of the LigaSure to divide the mesoappendix. Once this was complete I divided the appendix from the cecum at its base with a VAIBHAV stapler. I placed the appendix into an Endo Catch bag and removed through the suprapubic port. A Duncan Calloway wound closure device was introduced in this port site, and the fascia was reapproximated with interrupted Vicryl sutures. I examined the surgical field. The staple line looked fine. There was no contamination or spillage and the surgical field was hemostatic. I then remove the left lower quadrant port. There was no bleeding. The umbilical port was then removed after the insufflation was all evacuated. Skin and subcutaneous tissues were irrigated, and the skin was closed with absorbable subcuticular stitches. Bandages were applied, the patient was allowed awaken from the anesthetic, extubated, transferred to the recovery unit. Date of Procedure: 08/02/24
--- NOTE | 2024-08-02 15:46 | DSE_ITS ---
Date of service: 08/02/24 Time of Service: 15:46 DS: Diagnosis Discharge Diagnosis (1) Acute appendicitis, uncomplicated: Status: Acute Asessment and Plan: Outpatient postoperative follow-up Discharge Plan Disposition Patient Disposition: Home Condition: Good Discharge Details Reason For Visit: Acute Appendicitis Admit Date/Time: 08/01/24 21:03 Admit Provider: Gianni Zavala Attending Provider: Gianni Zavala Primary Care Provider: Renee Montiel Home Meds and New Rx's Prescriptions: New tramadol 50 mg tablet 50 mg PO Q8H PRNQty: 9 0RF Rx Instructions: Take 1 tablet by mouth up to every 8 hours if needed for more severe pain Continued norgestimate-ethinyl estradiol [Sprintec (28)] 0.25-35 mg-mcg tablet 1 tab PO DAILY Qty: 84 1RF Formula 1 EACH tablet 1 ea PO DAILY Qty: 120 One-Per-Day [place]-3 1 EACH capsule,delayed release(DR/EC) 1 ea PO DAILY Discharge Instructions Instructions: Appendectomy, Laparoscopic Surgery (DC) Additional Instructions: Loretta, it was very nice to meet you in the hospital, and I appreciate your patience in getting you down to the OR. Hopefully will make a smooth and uneventful recovery. As we expected, your appendix was quite inflamed, and c ertainly was the source of your illness. The surgery itself went very smoothly, and I do not expect any complications moving forward. Expect to have some pain over the incision sites over the next few days. He may also experience a fair amount of bruising. That is extremely common and nothing to worry about. The use of Tylenol and ibuprofen over the next 48 hours will probably be helpful, and I did provide a prescription for some stronger pain medication if you need that. Ice packs are also very useful over the incisions to help with swelling and discomfort. It is also very reasonable to use heating pads if you find them comfortable as well. You should be up and walking around a little bit more more each day. Try to keep your lifting fairly light. Something less than a gallon of milk. I usually extend this restriction for about 2 weeks or so. I have taken the liberty of setting up an office appointment for you on August 15. Will see how you are feeling at that point, and how the incisions look, and I suspect we will start liberating your activity around that time. I did draft a letter to help with your employer for the early part of your recovery. I would expect you will probably be out for getting back to work around August 19, but we can address that if needed during your visit. I will be on-call this weekend, and if you need anything urgently, please feel free to call the hospital and have them page me at any time. If anything else comes up next week, please feel free to call the office at [phone] 1. Resume all of your regular medications. 2. Use ice packs over the incisions as needed for pain and swelling 3. Alternate [id number] Tylenol and ibuprofen every 6 hours for the first 2 days, then use them as needed. Use a prescription for tramadol if you need that for more severe pain. Some patients will experience a little bit of constipation after surgery, and using a [id number] stool softener or laxative would also be fine if you need that. 4. Leave bandages in place for 24 hours, then remove. 5. Shower with warm soapy water. Pat dry. You can reapply Band-Aids after that if you prefer as some of these incisions might be a little bit irritated by her clothing. 6. No soaking or tub baths until I see you in the office. 7. No heavy lifting until I see you in the office. 8. Call the office (or go directly to the emergency room after hours) if you notice any of the following: Develop chills (warm to touch), or if you have a thermometer and your temperature is above 101 Difficulty breathing or difficultly swallowing Persistent vomiting Any bleeding ? exceeding one tablespoon 9. Call your physician if the site where your intravenous was started becomes red, swollen, painful, and warm to touch. Referrals: Gianni Zavala MD [ [facility] STAFF PHYSICIAN] - (August 15 at 2 PM) Activity:: No heavy lifting Equipment/Supplies:: Blood Glucose Monitor Diet:: As Tolerated DS: Summary Time Spent with Patient providing and/or coordinating discharge services: Less than 30 minutes Status at Discharge Functional status at discharge: independent ambulation Overall status at discharge: patient is progressing back to baseline Mental Status: mental status grossly normal Speech and Movement: speech and movement normal Mood: congruent mood Affect: normal affect Quality:SDOH Health Related Social Needs: No Data to Display Exam GI Other: Abdomen is soft, nondistended, bandages are clean and dry. Psych Mental Status: mental status grossly normal Speech and Movement: speech and movement normal Mood: congruent mood Affect: normal affect DS: Data Vitals/I&O Vitals and I&O: Vital Signs Temperature 96.4 F L 08/02/24 08:05 Temperature Source Temporal Artery Scan 08/02/24 08:05 Pulse 65 08/02/24 08:05 Pulse Rhythm Regular 08/01/24 21:57 Respiratory Rate 16 08/02/24 08:05 Respiratory Effort Normal, Non-Labored 08/01/24 21:57 Respiratory Depth Normal 08/01/24 21:57 Respiratory Pattern Normal 08/01/24 21:57 Blood Pressure 114/69 08/02/24 08:05 Blood Pressure Mean 84 08/02/24 08:05 Blood Pressure Position Sitting 08/01/24 19:02 Pulse Oximetry 100 08/02/24 08:05 Oxygen Delivery Method Room Air 08/02/24 08:05 Oxygen Flow Rate 0 08/02/24 08:05 Pain Level 0 08/02/24 08:05 Intake & Output 08/01/24 08/02/24 08/02/24 23:59 11:59 23:59 Intake Total 70 / 70 1150.00 / 1850.00 700 / 1850.00 Output Total 700 / 700 Balance -630 / -630 1150.00 / 1825.00 675 / 1825.00 Weight 163 lb 9.6 oz 163 lb 9.6 oz Intake: IV 70 / 70 1150.00 / 1850.00 700 / 1850.00 Output: Urine 700 / 700 Estimated Blood Loss Other: Urine Color Pale Pale Yellow Yellow Urine Appearance Clear Clear Urine Odor Normal Normal Data Completed and Pending Labs on day of discharge: Labs from last 24 hours 08/01/24 08/01/24 20:05 18:30 WBC 13.58 H RBC 4.80 Hgb 13.6 Hct 41.1 MCV 86 MCH 28.3 MCHC 33.1 RDW 12.3 Plt Count 288 MPV 8.8 Immature Gran % 0.2 Neutrophils % 68.4 Lymphocytes % 25.4 Monocytes % 4.4 Eosinophils % 1.3 Basophils % 0.3 Nucleated RBC % 0.0 Absolute Neutrophils 9.29 H Absolute Lymphocytes 3.45 H Absolute Monocytes 0.60 Absolute Eosinophils 0.18 Absolute Basophils 0.04 Sodium 139 Potassium 3.3 L Chloride 105 Carbon Dioxide 23.6 Anion Gap 10.4 BUN 15 Creatinine 1.0 Est GFR (CKD-EPI 2020) 73.95 Glucose 105 Calcium 9.2 Magnesium 1.9 Total Bilirubin 0.3 AST 19 ALT 24 Alkaline Phosphatase 90 Total Protein 7.9 Albumin 3.6 Lipase 38 Urine Color Yellow Urine Clarity Clear Urine pH 5.0 Ur Specific [place] <= 1.005 Urine Protein Negative Urine Ketones Negative Urine Blood Trace-intact H Urine Nitrite Negative Urine Bilirubin Negative Urine Urobilinogen 0.2 Ur Leukocyte Esterase Negative Urine RBC 5-10 H Urine WBC 0-2 Ur Epithelial Cells Few Urine Crystals Negative Urine Bacteria Rare Urine Casts Negative Urine Mucus Negative Ur Culture Indicated? No Urine Glucose Negative PFSH All Active Problems (Updated 04/09/18 @ 15:38 by Yola Montoya NP) Acute appendicitis, uncomplicated (Acute) Contraception (Acute) History of anorexia nervosa (Acute) As teen. When figure skating, body image related. Bipolar disorder (Chronic) History. No medications Previous section (Chronic 07/14/16) Surgical History (Updated 04/09/18 @ 15:38 by Yola Montoya NP) section (09/27/14) C/S #2 03/08/17 LTCS. FClinton Perez. KK Family History Mother Depression Hypothyroidism Father GERD (gastroesophageal reflux disease) Sister Depression Sister No problems noted. Brother No problems noted. Daughter Age: 9 No problems noted. Social History Smoking/Tobacco Use Status: Former Tobacco Use Quit Date: 08/11/21 Smoking risk assessment performed?: Yes Alcohol Intake: current Alcohol Intake frequency: a few times a month Alcohol type: hard liquor Drug use: Occasionally Substance use type: marijuana Housing: house Do you feel safe at home: No Do you feel safe in your relationship?: No Female Reproductive History Menstrual control method: progesterone injection History History 3 Para 2 Hx # Term Pregnancies Multiple births Hx # Pregnancies Ectopic pregnancies AB induced Hx Number of Living Children AB spontaneous 1 Time Spent with Patient Time Spent with Patient: <45 minutes Time was spent: preparing to see the patient(eg.review tests), counseling the patient and care coordination
[2024-08-02] MEDS: fentaNYL 100 MCG/2 ML VIAL IVP ×2 (15:56→16:10)
--- NOTE | 2024-08-02 16:18 | CHAPLAIN ---
Loretta was resting in bed when I visited this morning. She is waiting to have her appendix removed. She said her pain is controlled, but she's hungry since she's not allowed to have anything to eat or drink before surgery. She lives nearby with her . I explained my role and offered support.
--- NOTE | 2024-08-02 16:23 | W.ANESPOSTOP ---
Postoperative Evaluation Date, Time and Location Date Performed: 08/02/24 Time Performed: 16:23 Patient Location: PACU Vital Signs Most Recent Imported Vital Signs: Most Recent Vital Signs Temp Pulse Resp BP Pulse Ox 36.3 C L 68 16 131/98 H 100 08/02/24 16:20 08/02/24 16:20 08/02/24 16:20 08/02/24 16:20 08/02/24 16:16 Pain Score Most Recent Pain Score: Most Recent Pain Score Pain Level [Right Lower 4 08/01/24 22:48 Abdomen] Pain Level 5 08/02/24 16:20 Assessment Mental Status: Awake (Alert & Oriented to Patient Baseline) Airway and Respiratory Function: Patent airway with normal (patient baseline) respiratory exam Cardiovascular Function: Hemodynamically Stable Hydration Status: Adequately Hydrated Nausea & Vomiting: No Nausea or Vomiting Pain: Pain is tolerable per patient Peripheral Nerve Block: Patient did not receive a nerve block
== END 2024-08-02 19:07 | disposition home or self-care (01) ==
LOC: ER 21:13 → MS 21:54
PROVIDERS: Admitting Provider Surgery; Emergency Provider Emergency Medicine; PCP Internal Medicine; Visit Provider Surgery
PROC: 0DTJ4ZZ Resection of Appendix, Percutaneous Endoscopic Approach (ICD-10-PCS; CPT 44970; principal; 2024-08-02 12:00)
DX: K35.890 Other acute appendicitis without perforation or gangrene (principal); F31.9 Bipolar disorder, unspecified
CPT/HCPCS: 44970; 80053; 83690; 96365; 96366; 96367; 96372; 99285; J1650; 74177; 81003; 81015; 83735; 85025; 88304; G0378; J0131; J2003; J2250; J2405; J2543; J2704; J3010; J3490